=== PATIENT | female | born 1970 | race Caucasian/White ===

== ENCOUNTER 2016-11-06 13:58 | Inpatient (IN) ==
[2016-11-06 15:25] LABS: MANUAL DIFF NEEDED? NO
[2016-11-06 15:38] LABS: BASO% 0.4 % (0.0-0.8); EOS# 0.12 X1000 (0.0-0.7); EOS% 1.6 % (0.0-10.0); HEMOGLOBIN 12.9 g/dL (12.0-16.0); IMM GRAN# 0.02 X1000 (0.0-0.04); IMM GRAN% 0.3 % (0.0-0.5); LYMPH# 1.37 X1000 (1.2-3.4); LYMPH% 18.7 % (20.5-51.1); MCH 29.9 PG (27-31); MCHC 33.9 g/dL (33-37); MONO% 8.2 % (1.7-9.3); MPV 9.7 FL (7.4-10.4); NEUT% 70.8 % (42.2-75.2); PLT 279 X1000 (130-400); RBC 4.32 XMIL (4.2-5.4)
[2016-11-06 15:59] LABS: AGAP 13; ALBUMIN 4.1 g/dL (3.5-5.0); ALKALINE PHOSPHATASE 72 U/L (32-104); AMYLASE 44 U/L (20-200); BUN 6 mg/dL (8-22); CALCIUM 9.1 mg/dL (8.8-10.2); CHLORIDE 102 mmol/L (98-107); COSMO 279; GOT 28 U/L (10-30); GPT 39 U/L (10-36); LIPASE 24 U/L (13-60); POTASSIUM 3.7 mmol/L (3.5-5.1); SODIUM 141 mmol/L (136-145); TCO2 26 mmol/L (25-35); TOTAL BILIRUBIN 0.52 mg/dL (0.20-1.00); TOTAL PROTEIN 6.3 g/dL (6.3-8.3)
[2016-11-06] MEDS ORDERED: ZOFRAN IV ONE ×2 (17:47→22:08)
[2016-11-06] MEDS ORDERED: MORPHINE IM ONE (17:47)
--- NOTE | 2016-11-06 18:00 | PROVIDER DOCUMENTATION ---
This chart was entered by Iva Saldivar Scribe, acting as scribe for Marc Randall PA. HPI-Abdominal Pain/GI Problem - General Chief Complaint: Abdominal Pain Stated Complaint: ABD PAIN,NAUSEA Time Seen by Provider: 11/06/16 16:54 Source: patient, family (mother) Allergies/Adverse Reactions: Patient Allergies Allergy/AdvReac Type Severity Reaction Status Date / Time No Known Allergies Allergy Verified 11/06/16 21:42 Home Medications: Home Medication List Medication Instructions Recorded Confirmed Last Taken Type Escitalopram [Lexapro] 10 mg PO DAILY 11/06/16 11/06/16 11/06/16 History - History of Present Illness-ABD Nature of Presenting Problems: Pt is 46 y/o F presents to the ED with RLQ pain. Pt states pain started in LUQ and radiated to LLQ. Pt states pain has moved to the RLQ and is not longer in the L side of abdomen. Pt states the pain has been present for 19 days. Pt states the pain has worsened. Pt states N and V. Pt denies blood in stool. Pt states the pain is sharp. Pt states chronic abdominal pain since 14 years of age. Pt states seeing PCP last week and Dr. Allan diagnosed Pt with IBS. Abdominal Pain Onset Location: reports: RLQ Pain Radiation: reports: no radiation Quality of Pain: reports: sharp Severity in ED: reports: moderate Onset/Duration: reports: other (19 days) Timing: reports: still present, intermittent, getting worse Activities at Onset: reports: light activity Exposure to sick contacts?: No Modifying Factors: improves with: nothing Associated Symptoms: reports: nausea, vomiting. denies: anxiety, arm pain, back /neck pain, chest pain, constipation, cough, diaphoresis, diarrhea, dizziness, EENT symptoms, fatigue, fever/chills, genitourinary problems, headaches, heartburn, joint pain, loss of appetite, malaise, muscle aches, sinus congestion /drainage, rash, seizure, shortness of breath, sensory/motor loss, pain with inspiration, swelling/mass in abdomen, syncope, weakness, trouble walking Last BM: unsure Dark Stools Present?: reports: none noticed Rectal Bleeding: reports: none Rectal Pain: reports: none Emesis Description: reports: other (unsure) Bruising or Bleeding Gums?: No Similar Symptoms Previously?: Yes Recently seen or treated by another doctor?: Yes Review of Systems - Adult - REVIEW OF SYSTEMS - ADULT Constitutional: reports: no symptoms reported Eyes: reports: no symptoms reported Ears, Nose, Mouth & Throat: reports: no symptoms reported Cardiovascular: reports: irregular heart rate (tachy). denies: chest pain, heart murmur Respiratory: reports: no symptoms reported Gastrointestinal: reports: abdominal pain (RLQ), nausea, vomiting. denies: diarrhea Genitourinary: reports: no symptoms reported Musculoskeletal: reports: no symptoms reported Integumentary: reports: no symptoms reported Neurological: reports: no symptoms reported Psychiatric: reports: no symptoms reported Endocrine: reports: no symptoms reported Hematologic/Lymphatic: reports: no symptoms reported Allergic/Immunologic: reports: no symptoms reported All Other Systems: Reviewed and Negative Past History - Adult - PAST MEDICAL HISTORY-ADULT Review of Records: reports: Nursing Assessment Review, Medications Reviewed, Social history reviewed & non-contributory. Major Childhood Illnesses: reports: denies history Cardiovascular: reports: denies history Respiratory: reports: denies history Gastrointestinal: reports: denies history Obstetrical/Gynecological: reports: denies history Genitourinary: reports: denies history Musculoskeletal: reports: denies history Neurological: reports: denies history Psychiatric: reports: other (panic attack) Endocrine/Immune: reports: denies history Other Conditions: reports: denies history - PRIOR SURGERIES/PROCEDURES Surgical/Procedure History: reports: hysterectomy - IMMUNIZATION STATUS Childhood Immunizations: See Nurse Assessment Flu Vaccine: See Nurse Assessment - FAMILY HISTORY Family History: reviewed, not pertinent - SOCIAL HISTORY Smoking: denies Substance Use: denies Living Situation: family Physical Exam-General - PHYSICAL EXAM-ADULT Initial Vital Signs Reviewed: Yes - CONSTITUTIONAL General Appearance: alert, no apparent distress - EYES Eyes: PERRL/EOMI, pink conjunctivae - HEAD, EARS, NOSE, MOUTH & THROAT HENMT: normocephalic/atraumatic, moist mucous membranes, normal ENT inspection - NECK Neck: normal inspection - RESPIRATORY Respiratory: chest non-tender, lungs clear, normal breath sounds - CARDIOVASCULAR Cardiovascular: normal peripheral pulses, tachycardia - GASTROINTESTINAL (ABDOMEN) Abdominal Exam: normal bowel sounds, soft, tenderness (RLQ), McBurney's point tenderness, Rovsing's sign, other (positive heel tap) - LYMPHATIC Lymphatic: no adenopathy - MUSCULOSKELETAL Back Exam: normal inspection, no CVA tenderness, no vertebral tenderness Extremity: normal range of motion, non-tender, normal inspection - SKIN Integumentary: normal color, normal turgor, warm/dry - NEUROLOGIC Neurologic: grossly normal - PSYCHIATRIC Psych/Mental Status: normal mood/affect, oriented x 3 Progress - PLAN OF CARE/RESULTS Progress/Plan/Lab Results: Vital Signs - 8 hr 11/06/16 14:04 Temperature 99.0 F Pulse Rate 106 H Respiratory Rate 18 Blood Pressure 149/103 O2 Sat by Pulse Oximetry 100 Laboratory Results - last 24 hr 11/06/16 11/06/16 11/06/16 15:12 15:12 17:17 WBC 7.33 RBC 4.32 Hgb 12.9 Hct 38.0 MCV 88.0 MCH 29.9 MCHC 33.9 RDW Std Deviation 12.3 Plt Count 279 MPV 9.7 Immature Gran % (Auto) 0.3 Neut % (Auto) 70.8 Lymph % (Auto) 18.7 L [place] % (Auto) 8.2 Eos % (Auto) 1.6 Baso % (Auto) 0.4 Immature Gran # (Auto) 0.02 Neut # (Auto) 5.19 Lymph # (Auto) 1.37 [place] # (Auto) 0.60 H Eos # (Auto) 0.12 Baso # (Auto) 0.03 Sodium 141 Potassium 3.7 Chloride 102 Carbon Dioxide 26 Anion Gap 13 BUN 6 L Creatinine 0.6 Estimated GFR/1.73 m2 > 60 BUN/Creatinine Ratio 10 Glucose 94 Calculated Osmolality 279 Calcium 9.1 Total Bilirubin 0.52 AST 28 ALT 39 H Alkaline Phosphatase 72 Total Protein 6.3 Albumin 4.1 Globulin 2.2 Albumin/Globulin Ratio 1.9 Amylase 44 Lipase 24 Urine Source Cancelled Urine Color Cancelled Urine Turbidity Cancelled Urine pH Cancelled Ur Specific [place] Cancelled Urine Protein Cancelled Ur Glucose (Stick) Cancelled Ur Ketones (Stick) Cancelled Urine Blood Cancelled Urine Nitrite Cancelled Urine Bilirubin Cancelled Urobilinogen Dipstick Cancelled Urine Leukocytes Cancelled Urine WBC (Auto) Cancelled Urine RBC (Auto) Cancelled U Epithel Cells (Auto) Cancelled Urine Bacteria (Auto) Cancelled 11/06/16 17:28 WBC RBC Hgb Hct MCV MCH MCHC RDW Std Deviation Plt Count MPV Immature Gran % (Auto) Neut % (Auto) Lymph % (Auto) [place] % (Auto) Eos % (Auto) Baso % (Auto) Immature Gran # (Auto) Neut # (Auto) Lymph # (Auto) [place] # (Auto) Eos # (Auto) Baso # (Auto) Sodium Potassium Chloride Carbon Dioxide Anion Gap BUN Creatinine Estimated GFR/1.73 m2 BUN/Creatinine Ratio Glucose Calculated Osmolality Calcium Total Bilirubin AST ALT Alkaline Phosphatase Total Protein Albumin Globulin Albumin/Globulin Ratio Amylase Lipase Urine Source CLEAN CATCH Urine Color Urine Turbidity Urine pH Ur Specific [place] Urine Protein Ur Glucose (Stick) Ur Ketones (Stick) Urine Blood Urine Nitrite Urine Bilirubin Urobilinogen Dipstick Urine Leukocytes Urine WBC (Auto) Urine RBC (Auto) U Epithel Cells (Auto) Urine Bacteria (Auto) Orders Category Date Time Status AMYLASE [CHEM] Stat Lab 11/06/16 15:12 Completed CBC WITH ELECTRONIC DIFF [HEME] Stat Lab 11/06/16 15:12 Completed COMPREHENSIVE METABOLIC PANEL [CHEM] Stat Lab 11/06/16 15:12 Completed LIPASE [CHEM] Stat Lab 11/06/16 15:12 Completed Result Diagrams: 11/06/16 15:12 11/06/16 15:12 - REASSESSMENT Reassessment #1 Time Reassessed: 21:30 (Discussed c Dr. De La Torre (ER MD) who reviewed imaging studies and labs. He agrees c plan of care to admit pt for GI and General Surgery to evaluate. ) - CT/MRI 1 CT Study: Abdomen, Pelvis Impression: Abnormal (Distended R colon; transition to normal caliber at distal transverse colon, where there is wall thickening; considerations include colitis and mass lesion at the distal transverse colon; free fluid in pelvis; unremarkable appendix) - CONSULTS/PCP/HOSPITALIST Notification #1 *Consult/PCP/Hospitalist*: Dr. Cochran (General Surgery) Time Discussed: 21:22 Reason/Comments: Recommend admission and be seen by GI. Will see her in am tomorrow. #2 Consult: Dr. Gao (GI) Time Discussed: 21:40 (Admit pt to Hospitalist service. She will consult and order bowel prep c plan to scope on Wednesday. Start Levaquin and Flagyl ) Reason/Comments: Pt is established c Dr. Gao and specifically requested she be consulted. #3 Consult: Dr. Haas (Hospitalist) Time Discussed: 22:12 Reason/Comments: Will admit pt and see in ER and write all orders. Do not start Levaquin. Departure - Departure Time of Disposition Decision: 22:07 DIAGNOSIS: Colitis, Colonic mass Disposition: ADMITTED INPATIENT 09 Certified Medical Emergency: Emergent Condition: Stable Referrals and Follow-Ups: Shady Allan MD [Primary Care Provider] - - Critical Care Note This patient required my direct personal management.: Yes Attestation - Physician/ NEHEMIAH Attestation Patient care was provided by Advanced Practice Provider:: Yes Advanced Practice Provider:: Marc Randall Advanced Practice Provider documentation review:: The Mid-level provider documentation, treatment plan and medical decision making was reviewed by the physician who agrees with all treatment and medical decision making by the MLP. This chart was documented by the indicated scribe, (Iva Saldivar Scribe) and accurately reflects the services I performed and decisions made by me, Marc Randall PA, as attested by the provider's signature.
[2016-11-06] MEDS ORDERED: MORPHINE IV ONE (22:08)
[2016-11-06] MEDS ORDERED: FLAGYL 750 MG in NS 150 ML IV ONE (22:08)
--- NOTE | 2016-11-06 23:04 | HISTORY AND PHYSICAL ---
PRIMARY CARE PHYSICIAN: Dr. Shady Allan. CHIEF COMPLAINT: Abdominal pain. HISTORY OF PRESENTING ILLNESS: A 46-year-old female with a history of panic attacks had presented to emergency department with 2 weeks history of having diffuse abdominal pain. She states that initially started on the left lower quadrant then migrated throughout her whole abdomen. She had seen a primary care physician who put her on some Bentyl possibly for irritable bowel syndrome. However she states that she began having more nausea and vomiting and abdominal pain was worsening. She was evaluated in the ER, she had a CAT scan done which was suspicious for colon lesion and colitis and subsequently she will need hospitalization for further management. At the time my examination she denied any headache, fever, chills, chest pain, shortness of breath, hemoptysis but complained of nausea, vomiting, abdominal discomfort. PAST MEDICAL HISTORY: Includes panic attacks. PAST SURGICAL HISTORY: Hysterectomy. ALLERGIES: No known drug allergies. CURRENT MEDICATIONS: Include Lexapro 10 mg p.o. daily. SOCIAL HISTORY: She denies any history of smoking, admits to social alcohol use. Denies any illicit drug use. She is a teacher. FAMILY HISTORY: Positive for coronary disease father. REVIEW OF SYSTEMS: Twelve point review of systems is as in HPI. Other systems negative. PHYSICAL EXAMINATION: GENERAL: Cooperative, friendly female, she is resting comfortably now. VITAL SIGNS: Temperature 99.0, pulse 106, respiration 18, blood pressure 149/103. HEENT: Atraumatic, normocephalic. Extraocular movements intact. PERRLA. NECK: Supple. CHEST: Clear to auscultation. CARDIOVASCULAR: Regular rate and rhythm. S1, S2. ABDOMEN: Soft. Diffuse tenderness. EXTREMITIES: No edema. NEURO: She is awake, alert, oriented x3. Speech is intact. Strength 5/5 all extremities. : No bladder distention. SKIN: Warm and good pallor. LABORATORIES AND STUDIES: WBCs 7.33, hemoglobin 12.9, hematocrit 38.0, platelets 279,000. Sodium 141, potassium 3.7, chloride 102, CO2 is 26, BUN is 6, creatinine 0.6, glucose is 94. ASSESSMENT: 46-year-old female with a history of panic attack and anxiety disorder had presented to emergency department with 2 weeks history of having abdominal pain. She was found to have on CT scanning possible colon lesion and colitis. She will need hospitalization further management. ASSESSMENT: 1. Abdominal pain. 2. Abnormal CT. 3. Acute colitis. 4. Suspected colon mass. 5. Panic attacks. PLAN: 1. Will admit patient to medical floor with telemetry. 2. Will keep patient on full liquid diet over weekend. 3. Continue with IV fluids, antiemetics and adequate pain control. 4. Will consult Gastroenterology. 5. Will restart her SSRI. 6. Will put patient on DVT prophylaxis SCD. 7. We will continue to follow and reassess. cc: Jas Haas MD
[2016-11-06] MEDS ORDERED: NS 1,000 ML IV SCH (23:29)
[2016-11-06] MEDS: LEXAPRO PO SCH (23:56)
[2016-11-06] MEDS: FLAGYL 500 MG/NS 500 MG/100 ML IVPB IV SCH (23:59)
--- NOTE | 2016-11-07 01:11 | Diag Imaging Result Document ---
PROCEDURE NAME: CT ABD/PELVIS W/ IV CONT ONLY - 11/06/2016 CT ABDOMEN AND PELVIS WITH IV CONTRAST ONLY: TECHNIQUE: Exam performed with intravenous contrast only per request of the referring provider. A dose reduction protocol was used. COMPARISON: No comparison exam. FINDINGS: The visualized lung bases are clear. There is a nonspecific 1 cm low-density lesion in the posterior right lobe of the liver. There is no other liver lesion identified. The spleen appears upper range of normal in size. There are no calcified gallstones or pericholecystic inflammation identified. The adrenal glands and pancreas are unremarkable. The bilateral kidneys enhance homogeneously. There is no hydronephrosis. There are no substantially enlarged lymph nodes identified. There is no evidence of small bowel obstruction. The right colon is distended with fluid and air. There is a transition to normal caliber colon at the distal transverse colon. There is wall thickening in the area of caliber change at the distal transverse colon. These findings may relate to colitis. The possibility of partially obstructing mass lesion at the distal transverse colon cannot be excluded, however. There is no abscess identified. There is no free air. There is a medium amount of free fluid in the pelvis. The appendix is unremarkable. Images of the pelvis otherwise show a 1.7 cm thick-walled right ovarian cyst. IMPRESSION: 1. Nonspecific 1 cm low density lesion in posterior right lobe of liver. 2. Distended right colon with fluid and air. Transition to normal caliber colon at the distal transverse colon, where there is wall thickening. Considerations include colitis and partially obstructing mass lesion at the distal transverse colon. 3. No small bowel obstruction. Unremarkable appendix. 4. No abscess. No free air. Medium amount of free fluid in pelvis. 5. A 1.7 cm thick-walled right ovarian cyst.
[2016-11-07 06:08] LABS: MANUAL DIFF NEEDED? NO
[2016-11-07 06:13] LABS: BASO% 0.3 % (0.0-0.8); EOS# 0.11 X1000 (0.0-0.7); EOS% 1.7 % (0.0-10.0); HEMATOCRIT 34.9 % (37.0-47.0); HEMOGLOBIN 11.9 g/dL (12.0-16.0); IMM GRAN# 0.02 X1000 (0.0-0.04); IMM GRAN% 0.3 % (0.0-0.5); LYMPH# 1.28 X1000 (1.2-3.4); LYMPH% 19.6 % (20.5-51.1); MCH 29.9 PG (27-31); MCHC 34.1 g/dL (33-37); MCV 87.7 FL (81-99); MONO# 0.67 X1000 (0.11-0.59); MONO% 10.2 % (1.7-9.3); MPV 9.7 FL (7.4-10.4); NEUT% 67.9 % (42.2-75.2); PLT 238 X1000 (130-400); RBC 3.98 XMIL (4.2-5.4)
[2016-11-07] MEDS: ZOFRAN IV PRN ×4 (06:16→22:01)
[2016-11-07 06:51] LABS: AGAP 12; BUN 5 mg/dL (8-22); CALCIUM 8.4 mg/dL (8.8-10.2); CHLORIDE 104 mmol/L (98-107); COSMO 278; POTASSIUM 3.5 mmol/L (3.5-5.1); SODIUM 141 mmol/L (136-145); TCO2 25 mmol/L (25-35)
[2016-11-07] MEDS: FLAGYL 500 MG/NS 500 MG/100 ML IVPB IV SCH ×3 (08:09→22:01)
[2016-11-07 08:49] LABS: URINE CULTURE NEEDED? NO; URINE MICRO REVIEW NEEDED? NO; URINE SOURCE CLEAN CATCH
[2016-11-07 08:53] LABS: BILIRUBIN URINE NEGATIVE (NEGATIVE); BLOOD URINE NEGATIVE (NEGATIVE); COLOR YELLOW; GLUCOSE URINE NEGATIVE (NEGATIVE); LEUKOCYTES URINE NEGATIVE (NEGATIVE); NITRITE URINE NEGATIVE (NEGATIVE); PH URINE 6.5; PROTEIN URINE NEGATIVE (NEGATIVE); SP GRAVITY URINE 1.017; TURBIDITY URINE CLEAR (CLEAR); UROBILINOGEN URINE NORMAL (NORMAL)
[2016-11-07 08:54] LABS: UR EPITHELIAL CELLS <10 /HPF (<10); URINE BACTERIA NEGATIVE /HPF; URINE RBC <10 /HPF (<10); URINE WBC <10 /HPF (<10)
[2016-11-07] MEDS: OXY IR PO PRN (11:15)
[2016-11-07] MEDS ORDERED: SODIUM CHLORIDE 0.9% INJ PRN (11:57)
[2016-11-07] MEDS ORDERED: GOLYTELY PO ONE (11:58)
--- NOTE | 2016-11-07 12:39 | PROGRESS NOTE ---
DATE: 11/07/2016 SUBJECTIVE: Ms. Casarez was admitted per Dr. Haas, a 46-year-old with history of panic attacks and general anxiety, who presented to the emergency room. She really for the last week has had more abdominal bloating and nausea, right-sided and sometimes diffuse abdominal pain. Initially it started in the left lower quadrant and then migrated to the whole abdomen. I saw her last week and put her on a little bit of Bentyl to see if this would help. She does have a history of irritable bowel syndrome in the past status post hysterectomy. She states she is still nauseated, of course she is very worried. She had a CT of her abdomen and pelvis and nonspecific 1 cm low- density lesion in the posterior right lobe of the liver, distended right colon with fluid air, transition to normal caliber colon at the distal transverse colon where there was wall thickening. Considerations included colitis, partially obstructing mass in the distal transverse colon. No small bowel obstruction. No abscess. There is 1.7 cm thick wall right ovarian cyst. OBJECTIVE: Vital Signs: On exam today, temp 98.5 degrees, pulse 75, respirations 16, blood pressure 119/66. HEENT: Pupils are equal, round, react to light and accommodation. Oral and nasal mucosa unremarkable. Conjunctivae pink. Sclerae clear. Tympanic membranes intact. Neck: Supple without adenopathy or thyromegaly. CVP less than 6 cm. : Urine output was almost 2 L. CBC: White count 6540, hematocrit 34, platelet count 238,000. Sodium 141, potassium 3.5 chloride 104, BUN 5 and creatinine 0.6. ASSESSMENT AND PLAN: History of panic attacks and anxiety disorder. Presented to the emergency room having some abdominal pain. CT scan showed possible colon lesion, colitis. Plan to prep her and hopefully get colonoscopy on Wednesday per Dr. Gao. She is very anxious and of course obviously concerned. We will try and prep her and do this slowly. She has some Zofran for nausea. I started some oxycodone IR as needed for pain. Let her have Phenergan if she needs it. Fluids going in at 150 mL per hour; I am going to change it to 85 mL an hour. I have her on Flagyl 500 mg IV q. 8 hours. She takes her Lexapro 10 mg daily. cc: Shady Allan MD
[2016-11-07] MEDS: PHENERGAN IV PRN ×3 (13:59→22:57)
--- NOTE | 2016-11-07 17:16 | CONSULTATION ---
DATE OF CONSULTATION: 11/07/2016 REASON FOR CONSULTATION: Abdominal pain. Possible colonic mass. HISTORY OF PRESENT ILLNESS: This is a 46-year-old female with a long history of irritable bowel syndrome symptoms who recently over the last 2 weeks has had a more persistent and intense, crampy, spasmodic type pain starting in her left upper abdomen and radiating across to her right side. It is been happening daily multiple times throughout the day without any known triggering factors or relieving factors. It has also been associated with some nausea and vomiting. She has been having daily stools but the amount and frequency is slowing down to once a day and normally she is 2-3 times per day. She has not seen any blood in her stool or vomit. She denies any weight loss. She denies any fever. She had a little bit of some chills a few days ago. PAST MEDICAL HISTORY: Irritable bowel syndrome, panic attacks. PAST SURGICAL HISTORY: Partial hysterectomy. HOME MEDICATIONS: Lexapro and recently a prescription for Bentyl and Prilosec. ALLERGIES: No known drug allergies. SOCIAL HISTORY: She denies tobacco or illicit drug use. She drinks alcohol occasionally socially. She is a teacher at a local elementary school. FAMILY HISTORY: Notable for diverticulitis in her mother and coronary artery disease in her father. REVIEW OF SYSTEMS: Ten systems reviewed and negative except as noted above. PHYSICAL EXAMINATION: Vital Signs: Temperature 98.4 degrees, pulse 74, respirations 16, blood pressure 119/65, O2 saturation 99%. General: Well-developed, well-nourished female, in no distress who looks her stated age. HEENT: Normocephalic, atraumatic. Extraocular muscles intact. Pupils equal, round, reactive to light. Sclerae anicteric. Moist mucous membranes. Hearing grossly normal. No oral lesions. Neck: Supple. No thyromegaly. CV: Regular rate and rhythm. Respiratory: Bilateral equal breath sounds. Gastrointestinal: Soft, nondistended. She does have bowel sounds. No organomegaly or mass. She is tender in the right upper and lower quadrants and some in her epigastrium. No rebound or guarding. No mass or hernia appreciated. Extremities: No clubbing, cyanosis, or edema. Skin: Warm and dry. No rash. Musculoskeletal: Moves all extremities equally and well. LABORATORY: White blood cell count 6.5, hemoglobin 11.9, hematocrit 34.9. Complete metabolic profile reviewed and unremarkable. Amylase and lipase normal. Urinalysis unremarkable. IMAGING: A CT of abdomen and pelvis was done yesterday and reviewed by me showing a nonspecific 1 cm low-density lesion in the posterior right lobe of the liver. There appears to be a distended right colon with transition point along the distal transverse colon with associated wall thickening here. This could possibly represent colitis versus a partially obstructing colon cancer. She has a thick-walled right ovarian cyst. ASSESSMENT AND PLAN: A 46-year-old female with partial large bowel obstruction. The etiology is unclear at this point. She is going to proceed with slow gentle bowel prep in anticipation of a diagnostic colonoscopy on Wednesday by Dr. Gao. I will follow along with you. Thanks for the consultation. cc: MD Shady Call MD
[2016-11-07] MEDS: LEXAPRO PO SCH (22:01)
[2016-11-08] MEDS: FLAGYL 500 MG/NS 500 MG/100 ML IVPB IV SCH ×3 (01:43→17:14)
[2016-11-08] MEDS: PHENERGAN IV PRN (03:44)
[2016-11-08] MEDS ORDERED: DULCOLAX PR ONE (06:00)
[2016-11-08] MEDS: OXY IR PO PRN (06:16)
[2016-11-08] MEDS: ZOFRAN IV PRN ×3 (06:16→19:56)
[2016-11-08] MEDS ORDERED: FLEET ENEMA PR ONE (09:26)
[2016-11-08] MEDS ORDERED: REGLAN IV PRN (10:11)
--- NOTE | 2016-11-08 10:20 | PROGRESS NOTE ---
DATE: 11/08/2016 SUBJECTIVE: The patient is feeling nauseated and still having some abdominal pain, mostly on the right side. She has not been able to take much of her GoLYTELY prep. She has had just a little flatus and small stool this morning. OBJECTIVE: Vital Signs: She is afebrile. Her pulse is now a little over 100 at 1:13 this morning. Blood pressure 146/95. General: She is ill appearing and uncomfortable but no acute distress. GI: Soft, nondistended. She is tender on the right side. ASSESSMENT/PLAN: A 46-year-old female with large bowel obstruction of unclear etiology. She is trying to take a bowel prep today. I will give her a Fleets enema and she is scheduled for a colonoscopy tomorrow. cc: MD Shady Call MD
[2016-11-08] MEDS: DILAUDID IV PRN ×3 (10:38→19:56)
--- NOTE | 2016-11-08 11:22 | PROGRESS NOTE ---
DATE: 11/08/2016 SUBJECTIVE: Ms. Casarez's nausea is worse. She is just very uncomfortable. Abdominal bloating. Her right hip is hurting from lying in the bed. PHYSICAL EXAMINATION: Vital Signs: Today, temperature 97.9 degrees, pulse 113, respirations 14, blood pressure 146/95. HEENT: Pupils are equal and round. Lungs: Clear in all lung naylor. Cardiovascular Examination: Regular rhythm and rate without murmur or S3. Abdomen: Soft. Skin: Warm and dry. Is and Os: Urine output was 600-700 mL. REVIEW OF LABS: No new labs this morning. She has taken very little to prep of her Colyte. ASSESSMENT AND PLAN: 1. Partial large bowel obstruction, etiology unclear. Colonoscopy planned for tomorrow, I believe with Dr. Gao. Going to proceed with gentle bowel prep. She is very nauseated. I will add Reglan to her regimen. 2. Complained of right hip pain, lying in the bed. I am going to let her have something stronger intravenous. I will let her have 0.5 mg of Dilaudid every 4 hours as needed. 3. Hemodynamics look stable. Present fluids, I think I will give her normal saline and run it at 80 mL an hour or 85 mL an hour. She is still on the Flagyl 500 mg intravenous every 8. cc: Shady Allan MD
[2016-11-08] MEDS: LEXAPRO PO SCH (20:10)
[2016-11-09] MEDS: FLAGYL 500 MG/NS 500 MG/100 ML IVPB IV SCH ×4 (01:00→20:08)
--- NOTE | 2016-11-09 09:39 | CONSULTATION ---
DATE OF CONSULTATION: 11/09/2016 REFERRING PHYSICIAN: Dr. Shady Allan M.D. INDICATION FOR CONSULTATION: 1. Abdominal pain. 2. Nausea with vomiting. 3. Abnormal CT scan. HISTORY OF PRESENT ILLNESS: The patient is a 46-year-old, white female who has a past medical history of panic attacks. Otherwise, she has been relatively healthy. She notes intermittent diarrhea and constipation when stressed. However, approximately 3 weeks ago, she began having diffuse abdominal pain. She thought that the pain might be related to a viral syndrome and so managed it conservatively at home for several days. However, the pain persisted and became more intense. It was associated with constipation which is atypical for her, as well as nausea with vomiting. She presented to Dr. Allan, her primary care physician, who thought her symptoms were consistent with irritable bowel syndrome. She was initially placed on Bentyl but reports no improvement. The pain persisted and she presented to the emergency room for evaluation. In the ER, a CT scan is remarkable for a lesion in the transverse colon with possible mass effect. There is also a 1 cm density in the posterior right lobe of the liver. There was no evidence of small bowel obstruction, abscess, or free air. There was a medium amount of free fluid in the pelvis. Because of her symptoms, we are asked to perform endoscopic evaluation. PAST MEDICAL HISTORY: Panic attacks. PAST SURGICAL HISTORY: Hysterectomy. MEDICATION ALLERGIES: None. CURRENT MEDICATIONS: Lexapro 10 mg per day. SOCIAL HISTORY: The patient reports occasional alcohol use. She denies tobacco or illicit drug use. She is a teacher. FAMILY HISTORY: Positive for coronary artery disease. There is no history of colon cancer. REVIEW OF SYSTEMS: Remarkable for abdominal bloating and distention with left upper quadrant and left lower quadrant discomfort. She notes fullness in the right lower quadrant. She has had nausea and vomiting this admission, has been poorly tolerant of oral intake. PHYSICAL EXAMINATION: General: On exam, she is in no acute distress. Vital Signs: Her blood pressure is 129/82, pulse 111, respirations 16, temperature of 98.8 degrees. HEENT: Negative for jaundice. Her oropharyngeal mucosal membranes are dry. Pulmonary Examination: Lungs are clear to auscultation with normal respiratory effort. Cardiovascular Examination: Reveals regular rate and rhythm with no murmurs, gallops, or rubs. On my examination, her heart rate was 96. Abdominal Examination: Reveals normoactive bowel sounds. The abdomen is soft but significantly distended. The abdominal wall feels somewhat doughy and she has palpable fullness in the right lower quadrant as well as significant tenderness in the epigastrium/left upper quadrant. Extremities: Bilaterally are negative for cyanosis, clubbing, or edema. OBJECTIVE DATA: Reveals a hemoglobin of 11.9, with hematocrit of 34.9, and a white count of 6.54. She has 238,000 platelets. Sodium is 141, potassium 3.5, chloride 104, CO2 of 25, BUN 5, creatinine 0.6, with a glucose of 90, and a calcium of 8.4. IMPRESSION: 1. Nausea with vomiting. 2. Epigastric/left upper quadrant pain. 3. Abnormal CT scan with possible mass versus colitis in the left lower quadrant. 4. Normocytic anemia. RECOMMENDATION: 1. The patient will undergo an EGD and flexible sigmoidoscopy/colonoscopy today for further evaluation. 2. Continue to monitor hemoglobin and hematocrit, and transfuse as indicated. 3. Additional recommendations to follow based on clinical course. cc: Emeli Burk M.D. IRVIN
[2016-11-09] MEDS: ZOFRAN IV PRN ×3 (10:45→22:54)
[2016-11-09] MEDS ORDERED: MYLICON DROPS (DOSE) ONE (11:55)
[2016-11-09] MEDS ORDERED: DIPRIVAN 1% ONE (13:03)
[2016-11-09] MEDS ORDERED: EXTENSION SET 32 IN 4522 ONE (13:18)
[2016-11-09] MEDS ORDERED: ZOFRAN ONE (13:18)
[2016-11-09] MEDS ORDERED: XYLOCAINE-MPF 2% ONE (13:18)
[2016-11-09] MEDS ORDERED: ANESTHESIA PB SET 88 IN 5742 ONE (13:18)
[2016-11-09] MEDS ORDERED: LR 1,000 ML ONE (13:18)
[2016-11-09] MEDS ORDERED: LEVAQUIN 750 MG/D5W 750 MG/150 ML IVPB IV SCH (13:19)
[2016-11-09] MEDS: PROTONIX IV SCH (13:52)
[2016-11-09] MEDS: SOLU-MEDROL IV SCH (13:52)
[2016-11-09] MEDS: CARAFATE LIQUID PO SCH ×2 (13:52→20:08)
[2016-11-09] MEDS: SODIUM CHLORIDE 0.9% INJ SCH (13:52)
--- NOTE | 2016-11-09 14:02 | CONSULTATION ---
DATE OF CONSULTATION: 11/08/2016 CHIEF COMPLAINT: Abdominal pain. HISTORY OF PRESENT ILLNESS: This is a 46-year-old lady with a history of intermittent abdominal pain for the last 3-4 weeks. She has recently moved from [facility] and her had a piece of chicken stuck in the esophagus. Dr. Gao took care of it. She called her office and she is waiting for an appointment but more recently is having more abdominal distention, increasing constipation and some mucus in the stool. She had a CT scan which showed distention of the right colon and a narrowing at the distal transverse colon with suspicion whether colitis or mass. PAST MEDICAL HISTORY: Panic attacks. PAST SURGICAL HISTORY: Hysterectomy. ALLERGIES: None. CURRENT MEDICATIONS: Lexapro 10 mg daily. SOCIAL HISTORY: She does not smoke, drinks occasionally. No drug use. She is a teacher. FAMILY HISTORY: Positive for coronary artery disease. REVIEW OF SYSTEMS: A 12-point review is negative other than HPI. PHYSICAL EXAMINATION: General: This is a pleasant lady in no acute distress. Vital Signs: Temperature 98 degrees, pulse 90, respirations 18, blood pressure 140/90. HEENT: No scleral icterus. No conjunctival pallor. Neck: Supple. Trachea midline. Heart: Normal. Lungs: Normal. Abdomen: Distended, mild tenderness diffusely but no rebound or rigidity. Bowel sounds are present. Extremities: No edema, cyanosis, clubbing. Neuro: No focal neurological deficit. LABORATORY DATE: WBC 7.33, hemoglobin 12.9, hematocrit 38, platelets 279,000. Sodium 147, potassium 3.7, chloride 102, CO2 26, BUN 6, creatinine 0.6, glucose of 94. IMPRESSION AND PLAN: 1. Increasing abdominal pain, distention, change in the bowel pattern. The CAT scan does show some narrowing in the distal transverse colon. The differential diagnosis includes a neoplasm as well as stricture secondary to some colitis as a possibility. 2. Mild anemia. 3. History of panic attacks. 4. Increasing abdominal pain and change in the bowel pattern which may be related to #1. Will continue her prep. She is still nauseated. Dr. Gao is actually aware and is worried but I have asked her to get up and walk around while drinking light. It would be better if we have a clean colon for proper diagnosis. However we should not push this to possible obstruction. The patient understands while she is there and I have explained this. Dr. Gao will be doing colonoscopy which would lead to the diagnosis. cc: MD Shady Urbina MD
[2016-11-09] MEDS: DILAUDID IV PRN ×3 (14:13→22:54)
--- NOTE | 2016-11-09 14:43 | Diag Imaging Result Document ---
PROCEDURE NAME: CHEST/ABD TUBE PLACEMENT - 11/09/2016 PORTABLE EXAM: REASON FOR STUDY: Nasogastric tube placement. FINDINGS: The tip of the nasogastric tube is at the expected location of the mid stomach. The side port of the nasogastric tube is at the expected location of the gastroesophageal junction. The nasogastric tube probably should be advanced a few centimeters for more optimal positioning. Verbal results provided to nurse Crawley at 1:55 p.m. on 11/09/2016.
[2016-11-09 15:18] LABS: BASO% 0.4 % (0.0-0.8); EOS# 0.19 X1000 (0.0-0.7); EOS% 1.9 % (0.0-10.0); HEMATOCRIT 38.9 % (37.0-47.0); HEMOGLOBIN 13.3 g/dL (12.0-16.0); IMM GRAN# 0.03 X1000 (0.0-0.04); IMM GRAN% 0.3 % (0.0-0.5); LYMPH# 1.74 X1000 (1.2-3.4); LYMPH% 17.3 % (20.5-51.1); MANUAL DIFF NEEDED? NO; MCH 30.4 PG (27-31); MCHC 34.2 g/dL (33-37); MONO# 1.17 X1000 (0.11-0.59); MONO% 11.6 % (1.7-9.3); MPV 9.9 FL (7.4-10.4); NEUT% 68.5 % (42.2-75.2); PLT 316 X1000 (130-400); RBC 4.37 XMIL (4.2-5.4)
--- NOTE | 2016-11-09 17:12 | PROGRESS NOTE ---
DATE: 11/09/2016 SUBJECTIVE: Ms. Casarez feels better. She does have an NG tube in place for low wall suction. Dr. Gao had performed an EGD and was a limited colonoscopy because of inadequate prep I believe. Patient is more comfortable. OBJECTIVE: Vital signs: Temperature 98.5 degrees, pulse 101, respirations 16, blood pressure 115/67. HEENT: The pupils are equal and round. CVP less than 6 cm. Lungs: Clear in all lung naylor. Cardiovascular: Regular rhythm and rate without murmurs. : Good urine output at 1200 mL. LABORATORY FROM THIS MORNING: white count 10,080, hematocrit 38, platelet count 316,000. Sodium 141, potassium 3.5, chloride 104, bicarb 25, BUN 5, creatinine 0.6. Liver functions, mild elevation of ALT. ASSESSMENT AND PLAN: Nausea, vomiting, epigastric, upper quadrant pain, left upper quadrant pain. Abnormal CT with possible mass versus colitis in the left lower quadrant. Normocytic anemia. EGD performed. Apparently there was ulcer seen. We will discuss with Dr. Gao. I guess there is potential that this could be a regional enteritis or Crohn's disease. She is more comfortable. Nasogastric tube is helping. Continue intravenous fluids. cc: Shady Allan MD
[2016-11-09] MEDS: LEXAPRO PO SCH (20:08)
[2016-11-10] MEDS: SOLU-MEDROL IV SCH ×2 (01:40→13:04)
[2016-11-10] MEDS: SODIUM CHLORIDE 0.9% INJ SCH ×2 (01:40→13:03)
[2016-11-10] MEDS: PROTONIX IV SCH ×2 (01:40→13:04)
[2016-11-10] MEDS: CARAFATE LIQUID PO SCH ×4 (01:40→21:00)
[2016-11-10] MEDS: FLAGYL 500 MG/NS 500 MG/100 ML IVPB IV SCH ×3 (04:04→21:00)
[2016-11-10] MEDS: ZOFRAN IV PRN ×2 (04:11→10:08)
[2016-11-10] MEDS: DILAUDID IV PRN ×2 (04:11→10:17)
--- NOTE | 2016-11-10 09:36 | PROGRESS NOTE ---
DATE: 11/10/2016 SUBJECTIVE: She had a rough night at the beginning. She feels like the Levaquin is making her very nauseated. She requested that I stop the Levaquin. Otherwise, was showing some improvement. NG tube still in place. Abdomen does not appear distended. PHYSICAL EXAMINATION: Vital Signs: Temperature 98.9 degrees, pulse 97, respirations 16, blood pressure 132/81. HEENT: Pupils are equal and round. CVP less than 6 cm. Lungs: Clear in all lung naylor. Cardiovascular Examination: Regular rhythm and rate without murmur or S3. Is and Os: The urine output was good. LAB: White count 10,080, hematocrit 38, platelet count 316,000. Reviewed labs from the , unremarkable. ASSESSMENT AND PLAN: 1. She had nausea, vomiting, epigastric and left upper quadrant pain. CT showed a mass versus colitis, left lower quadrant. Colonoscopy, unable to prep adequate. The esophagogastroduodenoscopy was performed. There was suspicion based on the esophagogastroduodenoscopy and ulcer seen that she could have Crohn's disease or segmental enteritis. She is on steroid. Apparently, she feels that the Levaquin is making her very sick so she requested that I stop the Levaquin, which I will do. She is still on Flagyl 500 mg intravenous every 8. We will discontinue the Levaquin. Continue the methylprednisone which is 40 mg intravenous every 12 hours, Carafate 1 g every 6 hours. She is on Protonix 40 mg intravenous every 12 hours. 2. General anxiety, history of panic attacks in the past. She is on Lexapro. cc: Shady Allan MD
--- NOTE | 2016-11-10 10:09 | Diag Imaging Result Document ---
PROCEDURE NAME: TAMMY ABDOMEN - 11/10/2016 ABDOMEN TWO VIEWS: COMPARISON: 11/09/2016. FINDINGS: A nasogastric tube overlies the stomach. There continues to be air distended loops of small bowel and proximal colon. No improvement compared to prior exam. IMPRESSION: Ileus versus distal colonic obstruction.
--- NOTE | 2016-11-10 13:29 | PROGRESS NOTE ---
DATE: 11/10/2016 SUBJECTIVE: The patient states that she is feeling much better today. She reports that since we placed the nasogastric tube, her abdominal distention has improved. She continues to have constipation and abdominal pain, but it is significantly better than on admission. She underwent a colonoscopy that was limited to 40 cm due to severe acute colitis that appeared suggestive of Crohn's versus ulcerative colitis. We were unable to reach the mass that was visualized on CT scan. Her nausea has improved overall; however, she had significant nausea after receiving an infusion of Levaquin. OBJECTIVE: Vital Signs: On examination, her blood pressure is 132/81, pulse 97, respirations 16, temperature of 98.9 degrees. HEENT: Remarkable for a nasogastric tube in the right naris. Her oropharyngeal mucosal membranes are slightly dry. Pulmonary: Her lungs are clear to auscultation, with normal respiratory effort. Cardiovascular: Reveals regular rate and rhythm, with no gallops or rubs. Abdominal: Reveals hypoactive bowel sounds. The abdomen is soft with mild diffuse abdominal tenderness, but no rebound or guarding. It should be noted that the abdominal distention is less than on previous examination. OBJECTIVE DATA: Remarkable for a CRP of 15.38. RECOMMENDATIONS: 1. Continue current management with nasogastric tube decompression. 2. Check a KUB today and in the morning. 3. Continue Protonix 40 mg IV q.12 hours, along with Carafate 1 g p.o. q.6 hours. 4. Continue Flagyl. 5. Add Zosyn to expand the coverage. 6. Continue Solu-Medrol. 7. Await pathology results from her biopsies. 8. Await inflammatory bowel disease panel. 9. She will need another endoscopy prior to discharge to reassess the intraluminal lesion. cc: MD Shady uBrk MD
--- NOTE | 2016-11-10 13:33 | PROGRESS NOTE ---
DATE: 11/10/2016 SUBJECTIVE: The patient says she feels a little better after some NG tube suctioning. Her belly feels less tight and tender; however, she has not passed any gas or had bowel movements overnight. OBJECTIVE: Vital Signs: She is afebrile. Vital signs are stable. Pulse is up into the upper 90s now. General: She is alert and oriented x4. No acute distress. Abdomen: Soft, not particularly distended. There is mild tenderness. This is improved from her previous examination. LABORATORY: The only laboratory today is C-reactive protein of 15.4. IMAGING: Abdominal x-ray continues to show gas-distended loops of small bowel in probably proximal colon, indicating ongoing obstruction. ASSESSMENT/PLAN: A 46-year-old female with large-bowel obstruction and colitis. There is some concern for inflammatory bowel disease or Crohn's. Dr. Gao has started her on steroids. She is on Zosyn. We are going to hopefully treat her conservatively for the next few days and hopefully achieve some decrease in the inflammatory edema of her colon. We are tentatively planning a repeat colonoscopy on Wednesday. I will continue to follow along. cc: MD Shady Call MD
[2016-11-10 13:37] LABS: MANUAL DIFF NEEDED? NO
[2016-11-10 13:42] LABS: BASO% 0.1 % (0.0-0.8); HEMATOCRIT 39.5 % (37.0-47.0); HEMOGLOBIN 13.5 g/dL (12.0-16.0); IMM GRAN# 0.02 X1000 (0.0-0.04); IMM GRAN% 0.2 % (0.0-0.5); LYMPH# 1.45 X1000 (1.2-3.4); LYMPH% 12.1 % (20.5-51.1); MCH 30.3 PG (27-31); MCHC 34.2 g/dL (33-37); MCV 88.6 FL (81-99); MONO# 1.26 X1000 (0.11-0.59); MONO% 10.5 % (1.7-9.3); MPV 9.6 FL (7.4-10.4); NEUT% 77.1 % (42.2-75.2); PLT 355 X1000 (130-400); RBC 4.46 XMIL (4.2-5.4)
[2016-11-10] MEDS ORDERED: CHLORASEPTIC SPRAY MT PRN (15:15)
[2016-11-10] MEDS: ZOSYN 3.375 GM/NS 3.375 GM/50 ML IVPB IV SCH (18:16)
[2016-11-10] MEDS: LEXAPRO PO SCH (21:19)
[2016-11-11] MEDS: SOLU-MEDROL IV SCH ×2 (00:29→12:45)
[2016-11-11] MEDS: PROTONIX IV SCH ×2 (00:29→12:45)
[2016-11-11] MEDS: SODIUM CHLORIDE 0.9% INJ SCH ×2 (00:29→12:45)
[2016-11-11] MEDS: CARAFATE LIQUID PO SCH ×4 (02:00→20:06)
[2016-11-11] MEDS: ZOSYN 3.375 GM/NS 3.375 GM/50 ML IVPB IV SCH ×4 (04:04→18:21)
[2016-11-11] MEDS: FLAGYL 500 MG/NS 500 MG/100 ML IVPB IV SCH ×3 (04:48→20:05)
[2016-11-11 07:11] LABS: BASO% 0.1 % (0.0-0.8); HEMATOCRIT 39.2 % (37.0-47.0); HEMOGLOBIN 13.3 g/dL (12.0-16.0); IMM GRAN# 0.06 X1000 (0.0-0.04); IMM GRAN% 0.5 % (0.0-0.5); LYMPH% 7.9 % (20.5-51.1); MANUAL DIFF NEEDED? YES; MCH 30.2 PG (27-31); MCHC 33.9 g/dL (33-37); MCV 88.9 FL (81-99); MONO# 0.46 X1000 (0.11-0.59); MONO% 3.7 % (1.7-9.3); MPV 9.5 FL (7.4-10.4); NEUT% 87.8 % (42.2-75.2); PLT 363 X1000 (130-400); RBC 4.41 XMIL (4.2-5.4)
[2016-11-11 08:33] LABS: BANDS 2 % (0-1); LYMPHS 14 % (21-51); MONO 4 % (1-9)
--- NOTE | 2016-11-11 10:19 | OPERATIVE NOTE ---
PROCEDURE DATE: 11/09/2016 REFERRING PHYSICIAN: Shady Allan M.D. INDICATION FOR PROCEDURE: 1. Nausea with vomiting. 2. Abdominal pain. 3. Abnormal CT scan with possible colitis versus mass in the transverse colon with proximal obstruction. PROCEDURE PERFORMED: Esophagogastroduodenoscopy with biopsy. CONSENT: Informed consent was obtained from the patient prior to the procedure. The risks, benefits, and alternatives were discussed with the patient, her , and her mother. PERFORMING PHYSICIAN: Josephine Gao M.D. ASSISTANTS: 1. [facility] 2. Virginia Rincon RN. 3. Elvia Saldivar CRNA. 4. Chinmay Boo M.D. (anesthesia). ESTIMATED BLOOD LOSS: 1 mL. SPECIMENS REMOVED: 1. Duodenal biopsy. 2. Gastric biopsy. 3. Esophageal biopsy. FINDINGS: After sedation was achieved, the upper endoscope was inserted to the third portion of the duodenum. The hypopharynx appeared normal. In the tubular esophagus, there was grade D erosive esophagitis involving more than 75% of the luminal surface beginning at 25 cm and extending to the GE junction at 35 cm. The proximal esophagus appeared grossly normal. The GE junction was again measured at 35 cm. There was a hiatal hernia from 35-40 cm. In the gastric lumen, there was more than 500 mL of retained gastric fluid consistent with gastric stasis. After evacuation, the lumen appeared dilated. There were erosive changes throughout the gastric lumen in the antrum, fundus, and body. The pylorus appeared grossly normal on forward view. The duodenal mucosa appeared normal to the third portion. However, the lumen was significantly dilated, suggestive of a possible distal obstruction. The lumen was decompressed as much as possible. The scope was then removed without incident. At the bedside, a nasogastric tube was placed while the patient was under sedation. IMPRESSION: 1. Grade D erosive esophagitis. 2. Hiatal hernia. 3. Gastric stasis. 4. Erosive gastritis. 5. Dilated lumen, consistent with a distal obstruction. 6. Successful nasogastric tube placement. RECOMMENDATION: 1. Await biopsy results. 2. Begin Carafate suspension through the nasogastric tube. 3. Begin Protonix 40 mg IV q.12 hours. 4. Monitor with KUB today to check tube placement and daily for the next few days to monitor what appears to be an ileus versus obstruction. 5. We will proceed with the flexible sigmoidoscopy/colonoscopy as previously scheduled. cc: MD Shady Burk MD MTDD
--- NOTE | 2016-11-11 10:29 | OPERATIVE NOTE ---
PROCEDURE DATE: 11/11/2016 REFERRING PHYSICIAN: Shady Allan M.D. INDICATIONS FOR THE PROCEDURE: 1. Abdominal CT with possible colitis versus mass in the transverse colon. 2. Abdominal pain. PROCEDURE PERFORMED: Flexible sigmoidoscopy with biopsy. CONSENT: Informed consent was obtained from the patient prior to the procedure. The risks, benefits, and alternatives were discussed with the patient, her , and her mother. We discussed the possibility of a flexible sigmoidoscopy versus colonoscopy based on the exam. The patient understood that she may require repeat colonoscopy if we were unsuccessful in reaching the area of concern on today's exam. PERFORMING PHYSICIAN: Josephine Gao M.D. ASSISTANTS: 1. [facility] 2. Virginia Rincon RN. 3. Elvia Saldivar CRNA. 4. Lance Boo M.D. (Anesthesia). COMPLICATIONS: There were no complications. ESTIMATED BLOOD LOSS: 1 mL. SPECIMENS REMOVED: Random colon biopsies. FINDINGS: After the esophagogastroduodenoscopy was performed, the patient was repositioned. The endoscope was inserted to approximately 40 cm. From the rectum to 40 cm, there were severe ulcerative changes with inflammatory exudate consistent with severe acute ulcerative colitis. There were intervening, grossly normal-appearing, areas between the ulcer suggestive of Crohn's disease. Due to bowel wall edema with luminal compromise, we were unable to advance the scope beyond 40 cm. Random colon biopsies were taken and the lumen was decompressed. The scope was removed without incident. Because of the inflammatory changes in the ulcerations, retroflex view was not performed. IMPRESSION: 1. Severe acute ulcerative colitis with lesions suggestive of possible Crohn's disease. 2. Distal obstruction beyond 40 cm which is worrisome for malignancy. RECOMMENDATIONS: 1. Begin IV Solu-Medrol 40 mg q.12 hours. 2. Monitor abdominal distention with KUB today and then daily for the next 2-3 days. Monitor for toxic myron colon versus worsening of her ileus/bowel obstruction. 3. We will check an IBD profile, as well as a CRP and CBC. 4. After 3-4 days of treatment, she will need a repeat colonoscopy in an effort to reach the questionable mass versus obstructed area in the transverse colon. 5. Additional recommendations to follow, based on her clinical course. 6. The findings were discussed with Dr. Shady Allan and Dr. Karthikeyan Cochran. cc: MD Shady Burk MD Jason R. Seale, MD MTDD
[2016-11-11] MEDS: DILAUDID IV PRN (11:06)
[2016-11-11] MEDS: PHENERGAN IV PRN (11:12)
--- NOTE | 2016-11-11 13:09 | PROGRESS NOTE ---
DATE: 11/11/2016 SUBJECTIVE: Ms. Casarez had a little more nausea this morning. She has passed gas on several occasions. Not had a bowel movement, though. She is more comfortable. She feels pretty weak. OBJECTIVE: Vital Signs: Temp 97.7 degrees, pulse 79, respirations 18, blood pressure 138/72. HEENT: Pupils are equal, round. Lungs: Clear in all lung naylor. Cardiovascular exam: Regular rhythm and rate without murmur or S3. Abdomen: Soft. Skin: Warm and dry. LABS: From this morning, white count 12,600, hematocrit of 39, platelet count 363,000. Review of labs from the : Electrolytes unremarkable. C-reactive protein was 15.38 yesterday and today is 7.09. ASSESSMENT AND PLAN: Nausea, suspect colitis and suspect she could have regional colitis. Esophagogastroduodenoscopy did show some suggestion of ulcers consistent with Crohn, but have been unable to do a colonoscopy. She did not tolerate the prep. She has a nasogastric tube in. She is feeling better. Nausea is much better. I am going to add Clinimix to her regimen. She is on empiric antibiotics taking methylprednisone 40 mg intravenous every 12 hours, Zosyn 3.375 intravenous every 6 hours, Carafate 1 g every 6 hours. So, will add Clinimix to her regimen. Swelling has gone down, her belly is not as swollen, and she is having less nausea. I think tentatively looking at Dr. Cochran exploring the colon with colonoscopy on Wednesday. cc: Shady Allan MD
--- NOTE | 2016-11-11 13:48 | PROGRESS NOTE ---
DATE: 11/11/2016 SUBJECTIVE: The patient says she is feeling a little better today. Less abdominal distention and pain. She has also passed gas several times. OBJECTIVE: Vital signs: She is afebrile. Vital signs are stable. General: She is alert and oriented x4. No acute distress. Gastrointestinal: Soft, nondistended. Minimally tender. No organomegaly. She has a few bowel sounds. LABORATORY: White cell count 12.6, hemoglobin 13, hematocrit 39, platelet count 363,000. C- reactive protein is 7.1. ASSESSMENT AND PLAN: A 46-year-old female with large bowel obstruction and distal colitis and. Biopsies are pending. She is on steroids and antibiotics. We are initiating Clinimix today and tentatively planning a repeat colonoscopy to evaluate the transition zone in her distal transverse colon. This is tentatively planned for 11/13/2016. cc: MD Shady Call MD
--- NOTE | 2016-11-11 14:36 | Diag Imaging Result Document ---
PROCEDURE NAME: TAMMY ABDOMEN - 11/11/2016 SUPINE RADIOGRAPH OF THE ABDOMEN AND PELVIS, 2 VIEWS: COMPARISON: 11/10/2016. FINDINGS: The NG tube is in stable position. There is approximately stable marked gaseous distention of the colon and multiple loops of small bowel. Obstruction versus ileus should be considered. There is no evidence of large-volume free abdominal gas. There is no definite organomegaly. IMPRESSION: Stable gaseous distention of multiple loops of bowel.
[2016-11-11] MEDS: CLINIMIX E 4.25%-5% SOLUTION 1,000 ML IV SCH (14:56)
[2016-11-11] MEDS: LEXAPRO PO SCH (20:05)
--- NOTE | 2016-11-11 21:55 | PROGRESS NOTE ---
DATE: 11/11/2016 SUBJECTIVE: The patient states that she is feeling better today. She had spontaneous flatus. She had nausea this morning, but this has subsequently resolved. She remains constipated with no spontaneous defecation. However, her abdominal bloating has improved considerably. OBJECTIVE: Vital signs: On exam, her blood pressure is 134/64, pulse 77, respiration 18, temperature of 97.9 degrees. HEENT: Unremarkable. She has a nasogastric tube in the right nares. There is minimal secretion from the right nares. Neck: Is supple, but she does have some tenderness with position changes due to the nasogastric tube. Pulmonary: Lungs are clear to auscultation with normal expiratory effort. Cardiovascular: Reveals regular rate and rhythm with no murmurs, gallops, or rubs. Abdominal: Reveals hypoactive bowel sounds. The abdomen is soft and slightly distended, but there is no rebound or guarding. Extremities: Bilaterally are negative for cyanosis, clubbing, or edema. OBJECTIVE DATA: Reveals a hemoglobin of 13.3 with hematocrit of 39.2, and white count of 12.60. She has 363,000 platelets. Her CRP is 7.9. Her KUB reveals stable gaseous distention. IMPRESSION: 1. Acute colitis. 2. Bowel obstruction. 3. Nausea. 4. Grade D erosive esophagitis. 5. Gastric stasis. 6. Erosive gastritis. RECOMMENDATION: 1. Continue Protonix. 2. Continue Carafate for 12 weeks. 3. Continue nasogastric tube decompression. 4. She will need a KUB for further evaluation of the colonic lesion. Dr. Karthikeyan Cochran plans to perform endoscopy on Wednesday. Because of the flow rate of the nasogastric tube, I would begin the MiraLAX at noon tomorrow. Those orders have been written. 5. I will place the order for Dr. Cochran to have the patient on the schedule for colonoscopy on Wednesday. I will defer to him with regard to the time. 6. I will be out of the office until November 17. Dr. Cochran will be performing the gastrointestinal procedures. Dr. Diamond and Dr. Bernard are available for Gastroenterology consultation in the event of acute change. I will be available by cell phone and by text. Please feel free to call if there are any additional questions. cc: JosephineMD Shady Campbell MD Jason R. Seale, MD
[2016-11-12] MEDS: CLINIMIX E 4.25%-5% SOLUTION 1,000 ML IV SCH ×2 (00:05→18:51)
[2016-11-12] MEDS: PROTONIX IV SCH ×2 (01:19→13:25)
[2016-11-12] MEDS: SOLU-MEDROL IV SCH ×2 (01:19→13:26)
[2016-11-12] MEDS: ZOFRAN IV PRN ×5 (02:58→21:57)
[2016-11-12] MEDS: CARAFATE LIQUID PO SCH ×4 (02:58→21:00)
[2016-11-12] MEDS: SODIUM CHLORIDE 0.9% INJ SCH ×2 (02:59→13:25)
[2016-11-12] MEDS: FLAGYL 500 MG/NS 500 MG/100 ML IVPB IV SCH ×3 (04:04→21:00)
[2016-11-12] MEDS: ZOSYN 3.375 GM/NS 3.375 GM/50 ML IVPB IV SCH ×5 (05:51→21:59)
--- NOTE | 2016-11-12 08:05 | PROGRESS NOTE ---
DATE: 11/12/2016 SUBJECTIVE: Ms. Casarez had a pretty good night. She had a little nausea again this morning. Abdomen, she feels may be tensing up some. She is passing some gas, but more overall, she states she is much more comfortable. PHYSICAL EXAMINATION: Vital Signs: Temperature 98.3, pulse 88, respirations 18, blood pressure 139/70. HEENT: Pupils are equal, round. Lungs: Clear in all lung naylor. Cardiovascular: Regular rhythm and rate without murmur or S3. : Urine output 1200 mL. LABS: Reviewed lab from yesterday. Electrolytes and CBC unremarkable. ASSESSMENT AND PLAN: Acute colitis. Will continue Protonix, Carafate, nasogastric tube decompression. Dr. Cochran following. Follow KUB. Will try and prep through the nasogastric tube with some Colyte in anticipation for a re-try of colonoscopy tomorrow. Nausea seems to be a little better. She does have gastritis and gastric stasis, and grade D erosive esophagitis. I do not see any change in the orders at this point. She is on Zosyn and she is on Flagyl. She is getting Clinimix at this time. cc: Shady Allan MD
[2016-11-12] MEDS ORDERED: GOLYTELY PO ONE (12:00)
--- NOTE | 2016-11-12 12:25 | PROGRESS NOTE ---
DATE: 11/12/2016 SUBJECTIVE: The patient's main complaints are just overall anxiety. She feels a little bloated but continues to pass some gas through the night. No more vomiting. OBJECTIVE: Vital signs: She is afebrile. Vital signs are stable. General: She is alert and oriented x4. No acute distress. GI: Soft. Slightly distended and tympanic. Minimally tender. Hypoactive bowel sounds. ASSESSMENT AND PLAN: This is a 46-year-old female with colonic obstruction. There is evidence of distal colitis. The plans are for a bowel prep today and repeat a colonoscopy attempt tomorrow to evaluate a distal transverse colon abnormality and try to rule out malignancy. I have discussed this with her. We went over the risks and benefits of colonoscopy including bleeding and perforation and other imponderables. She understands and agrees to proceed. cc: MD Shady Call MD
[2016-11-12] MEDS: LEXAPRO PO SCH (21:59)
[2016-11-13] MEDS: DILAUDID IV PRN (00:11)
[2016-11-13] MEDS: PROTONIX IV SCH ×2 (00:20→21:07)
[2016-11-13] MEDS: SOLU-MEDROL IV SCH ×2 (00:20→21:07)
[2016-11-13] MEDS: SODIUM CHLORIDE 0.9% INJ SCH ×2 (00:21→21:07)
[2016-11-13] MEDS: FLAGYL 500 MG/NS 500 MG/100 ML IVPB IV SCH ×3 (03:45→21:04)
[2016-11-13] MEDS: CARAFATE LIQUID PO SCH ×4 (03:46→21:08)
[2016-11-13] MEDS: ZOSYN 3.375 GM/NS 3.375 GM/50 ML IVPB IV SCH ×3 (04:59→21:06)
[2016-11-13] MEDS: CLINIMIX E 4.25%-5% SOLUTION 1,000 ML IV SCH ×4 (04:59→20:36)
--- NOTE | 2016-11-13 09:51 | PROGRESS NOTE ---
DATE: 11/13/2016 SUBJECTIVE: The patient had a rough night. Did fairly well and then had quite a bit of projectile nausea about 10:30 last night, so we stopped the Colyte and put her NG tube back to suction. She is passing flatus and feeling like she is having abdominal cramping. So I think the plan is to still try and proceed with investigative colonoscopy this morning. OBJECTIVE: Vital Signs: Temp 98.0 degrees, pulse 119, respirations 20, blood pressure 142/75. Eyes: Pupils are equal and round. Lungs: Clear in all lung naylor. Cardiovascular exam: Regular rhythm and rate without murmur or S3. Abdomen: Soft. Skin: Warm and dry. : Urine output 1300 mL. LAB: White count 12,600, hematocrit 39, platelet count 263,000. Sodium 141, potassium 3.5, chloride 104, bicarbonate 25, BUN 5 and creatinine 0.6. C-reactive protein was 15 and came down to 7. This is review of lab from the - and -. ASSESSMENT AND PLAN: Colon obstruction. Evidence of distal colitis. Hope to do colonoscopy. Investigate today. The upper revealed gastritis, esophagitis and suggestion of regional enteritis. Did get down some Colyte, but it had been difficult to tolerate the prep. cc: Shady Allan MD
[2016-11-13] MEDS ORDERED: FENTANYL ONE ×2 (10:10→17:13)
[2016-11-13] MEDS ORDERED: DIPRIVAN 1% 500 MG/50 ML BOTTLE ONE (10:10)
[2016-11-13] MEDS ORDERED: PEPCID ONE (10:39)
--- NOTE | 2016-11-13 14:22 | OPERATIVE NOTE ---
PROCEDURE DATE: 11/13/2016 PREOP DIAGNOSIS: Large bowel obstruction. POSTOPERATIVE DIAGNOSIS: Colon cancer. PROCEDURE: Diagnostic colonoscopy. SURGEON: Karthikeyan Cochran MD. ANESTHESIA: General. TURBINE MEASUREMENTS ENGINEER: Morena Diamond. ESTIMATED BLOOD LOSS: Scant. COMPLICATIONS: None. APPARENT FINDINGS: She had a large, near circumferential, near complete obstructing mass at the distal transverse colon near the splenic flexure at about 60 cm from the anus. There was some mild disuse colitis distally in the sigmoid and rectum. TECHNIQUE: She was brought to the endoscopy room. General endotracheal anesthesia was induced. She was placed on her left side. A digital rectal exam was performed. There was good tone. No distal rectal masses were appreciated. The colonoscope was then advanced with some difficulty through a tortuous sigmoid colon. There was some mild edema and evidence of disuse colitis. I then was able to navigate up to the splenic flexure. Just past the splenic flexure at about 60 cm from the anus an obstructing malignant appearing mass was found. Despite multiple attempts I could not navigate past this mass due to it's size and apparent extreme narrowing of the lumen. I irrigated and suctioned out the irrigant and still could not get past it. I asked for Dr. Diamond to come in as a consultation for confirmation of the findings and for him to attempt moving beyond the mass and he also attempted and could not move beyond the mass. We then desufflated the remaining colon and withdrew the colonoscope. Partial colectomy is planned and I went out to talk to her family. cc: MD Shady Call MD [facility]
[2016-11-13] MEDS ORDERED: QUELICIN (DOSE) ONE (14:45)
[2016-11-13] MEDS ORDERED: EXTENSION SET 32 IN 4522 ONE (14:45)
[2016-11-13] MEDS ORDERED: XYLOCAINE-MPF 2% ONE (14:45)
[2016-11-13] MEDS ORDERED: ANESTHESIA PB SET 88 IN 5742 ONE (14:45)
[2016-11-13] MEDS ORDERED: REGLAN ONE (14:45)
[2016-11-13 15:44] LABS: BILIRUBIN URINE NEGATIVE (NEGATIVE); BLOOD URINE NEGATIVE (NEGATIVE); COLOR YELLOW; GLUCOSE URINE NEGATIVE (NEGATIVE); LEUKOCYTES URINE NEGATIVE (NEGATIVE); NITRITE URINE NEGATIVE (NEGATIVE); PROTEIN URINE NEGATIVE (NEGATIVE); SP GRAVITY URINE 1.009; TURBIDITY URINE CLEAR (CLEAR); URINE MICRO REVIEW NEEDED? NO; URINE SOURCE CATH; UROBILINOGEN URINE NORMAL (NORMAL)
[2016-11-13 15:46] LABS: UR EPITHELIAL CELLS <10 /HPF (<10); URINE BACTERIA NEGATIVE /HPF; URINE RBC <10 /HPF (<10); URINE WBC <10 /HPF (<10)
[2016-11-13] MEDS: MORPHINE ONE ×2 (17:06→17:11)
[2016-11-13] MEDS ORDERED: DIPRIVAN 1% ONE (17:14)
[2016-11-13] MEDS ORDERED: VERSED ONE (17:14)
[2016-11-13] MEDS ORDERED: PHENERGAN ONE (17:20)
[2016-11-13] MEDS ORDERED: MORPHINE ONE (17:24)
[2016-11-13] MEDS: DILAUDID ONE ×4 (17:34→18:02)
[2016-11-13] MEDS ORDERED: LR 500 ML ONE (17:39)
[2016-11-13] MEDS ORDERED: DILAUDID PCA VIAL ONE (17:41)
[2016-11-13] MEDS ORDERED: ZOFRAN IV PRN (18:23)
[2016-11-13] MEDS ORDERED: NARCAN IV PRN (18:23)
--- NOTE | 2016-11-13 18:47 | OPERATIVE NOTE ---
PROCEDURE DATE: 11/13/2016 PREOP DIAGNOSES: 1. Large bowel obstruction. 2. Colon mass. POSTOP DIAGNOSES: 1. Large bowel obstruction. 2. Colon mass. 3. Meckel's diverticulum. PROCEDURES: 1. Exploratory laparotomy with partial colectomy and primary anastomosis. 2. Meckel's diverticulectomy. SURGEON: Karthiekyan Cochran. PRECISION ASSEMBLY INSPECTOR: Abebe Goodson. ANESTHESIA: General. ESTIMATED BLOOD LOSS: 50 mL. COMPLICATIONS: None apparent. SPECIMENS: 1. Portion of transverse colon. 2. Meckel's diverticulum. FINDINGS: She had a malignant obstructing mass in her mid transverse colon. The proximal transverse and ascending colon were dilated with air but appeared to be viable. There was no evidence of peritoneal metastases or hepatic metastases. She did have a few enlarged lymph nodes in the mesentery below the mass. She had a Meckel's diverticulum. TECHNIQUE: She was brought to the operating room and placed supine on the table. A Alberts catheter was already in place as well as an NG tube. She was prepped and draped in usual sterile fashion after general anesthesia was induced. An upper midline incision was made from the xiphoid to the umbilicus and carried down through the subcutaneous fat with the knife and cautery. The fascia was incised with cautery. The peritoneum was grasped between hemostats and incised sharply with scissors. The peritoneum and fascia was then opened completely throughout the length of the incision with cautery protecting the underlying bowel. There was some benign appearing ascites. I inspected and palpated both of the liver lobes and they appeared normal. The omentum was somewhat shrunken but did not appear to have any obvious metastatic disease. None of the other peritoneal surfaces on the small bowel or abdominal wall appeared to be effected by any metastatic implants. We immediately found the malignant mass in her mid transverse colon. It was essentially right under the fascia in her upper midline. I selected an area proximally and distally at least 6 cm on either side where the bowel appeared normal and placed bowel clamps. The colon was divided between the clamps proximally and distally with a knife and then the mesentery including an envelope of al tissue was divided with the LigaSure device. This did include I believe a portion of the middle colic artery and vein. Also I did place a wound protector prior to this resection and toweled and packed off the rest of the bowel out of the way. I then brought the 2 ends together in an end-to-end fashion. There was a significant discrepancy in the size of the lumen due to the obstruction. The proximal limb was quite dilated compared to the distal limb. Therefore I removed the clamp off of the distal limb and made an incision along the antimesenteric side of the bowel with cautery long enough to approximate the length of our proximal limb. I then brought these 2 together in an end-to-end fashion. A posterior row of 3- 0 silk seromuscular sutures was placed in an interrupted fashion. The proximal clamp was removed. The air was decompressed out of the colon. There was essentially no spillage of gross stool. The inner layer posteriorly was begun with a running locking 3-0 Vicryl converting to a baseball stitch anteriorly and then the outer anterior layer was completed with another layer of interrupted 3-0 silk seromuscular sutures. There was no tension on the anastomosis, it had good color and appeared to have good blood flow in the mesentery. The mesenteric defect was closed with a running 3-0 silk. I then inspected the proximal colon, small bowel and the terminal ileum and found a Meckel's diverticulum. It was about 2 inches in length and an inch in width. It was somewhat dilated and thickened as was the rest of the small bowel. I could not feel a mass and there was no obvious diverticulitis. However there was a Meckel's band of fatty adhesions overlying the small bowel narrowing the lumen of the small bowel somewhat. I decided to go ahead and incise this band of tissue as it appeared to be causing a mild partial obstruction of the small bowel and then performed a diverticulectomy with a blue NADIR stapler across the base of the diverticulum. I did not feel like this compromised the lumen of the small bowel in any way. The proximal colon was without any synchronous masses. I then replaced the small bowel and colon back into the abdominal cavity in its anatomic position. The peritoneum was then closed with a running #1 Vicryl. The fascia was closed with a running #1 looped Maxon suture. The skin was closed with skin clips. I should also point out that Dr. Goodson was present throughout the case and very helpful in exposing the mass and mesentery as well as retraction during the resection and also in assisting with the hand-sewn anastomosis and closing the fascia, so he was quite helpful throughout the case. There were no apparent complications. She was awakened in stable condition and transferred to the recovery room. cc: MD Shady Call MD MTDD
[2016-11-13] MEDS: OFIRMEV 1000 MG/ISOTONIC SOLN 1,000 MG/100 ML BOTTLE IV SCH (20:55)
[2016-11-13 21:36] LABS: BASO% 0.2 % (0.0-0.8); EOS# 0.02 X1000 (0.0-0.7); EOS% 0.1 % (0.0-10.0); HEMATOCRIT 39.8 % (37.0-47.0); HEMOGLOBIN 13.5 g/dL (12.0-16.0); IMM GRAN% 0.4 % (0.0-0.5); LYMPH# 0.71 X1000 (1.2-3.4); LYMPH% 2.9 % (20.5-51.1); MANUAL DIFF NEEDED? NO; MCH 30.5 PG (27-31); MCHC 33.9 g/dL (33-37); MCV 89.8 FL (81-99); MONO# 1.25 X1000 (0.11-0.59); MONO% 5.1 % (1.7-9.3); MPV 9.7 FL (7.4-10.4); NEUT% 91.3 % (42.2-75.2); PLT 306 X1000 (130-400); RBC 4.43 XMIL (4.2-5.4)
[2016-11-14] MEDS: PERIDEX MT SCH ×3 (03:47→20:00)
[2016-11-14] MEDS: ZOSYN 3.375 GM/NS 3.375 GM/50 ML IVPB IV SCH ×4 (03:47→20:00)
[2016-11-14] MEDS: LEXAPRO PO SCH ×2 (03:47→23:15)
[2016-11-14] MEDS: CARAFATE LIQUID PO SCH ×4 (03:48→23:15)
[2016-11-14] MEDS: CLINIMIX E 4.25%-5% SOLUTION 1,000 ML IV SCH ×2 (03:48→14:49)
[2016-11-14] MEDS: OFIRMEV 1000 MG/ISOTONIC SOLN 1,000 MG/100 ML BOTTLE IV SCH ×4 (04:02→19:49)
[2016-11-14] MEDS: FLAGYL 500 MG/NS 500 MG/100 ML IVPB IV SCH ×3 (04:50→20:00)
--- NOTE | 2016-11-14 07:18 | PROGRESS NOTE ---
DATE: 11/14/2016 SUBJECTIVE: Patient doing okay. Reports some abdominal pain, but nothing significant. PHYSICAL EXAMINATION: Vital Signs: Patient is currently afebrile. Her heart rate has been in the 120s, but is currently in the 1 teens. Blood pressure is stable. Urine output has been good. General exam: No acute distress. Cardiovascular: Mildly tachycardic. Lungs: Grossly clear. Abdomen: Soft, appropriately tender. Dressing in place. : Alberts catheter in place with clear urine. LABORATORY: None. ASSESSMENT AND PLAN: A 46-year-old, female, status post exploratory laparotomy with colon resection and Meckel's diverticulectomy. Postoperative state: At this time, patient does have a little mild tachycardia. Will keep her Alberts catheter and monitor volume status. She is getting a significant amount of fluid and will monitor her closely. She is on Clinimix and will continue that for right now. We will await return of bowel function. Once she has return of bowel function, we will plan on starting p.o. intake. cc: MD Shady Landis MD
[2016-11-14] MEDS: PROTONIX IV SCH ×2 (08:05→19:59)
[2016-11-14] MEDS: LOVENOX SUBQ SCH (08:05)
[2016-11-14] MEDS: SOLU-MEDROL IV SCH ×2 (08:05→19:59)
--- NOTE | 2016-11-14 09:59 | PROGRESS NOTE ---
DATE: 11/14/2016 SUBJECTIVE: Ms. Casarez is feeling better this morning. She is very sleepy. No nausea and minimal pain at this point. Surgery yesterday, looking at the report they found a Gely diverticulum. I think biopsy from colonoscopy revealed some possible adenocarcinoma. There were a couple of suspicious lymph nodes apparently. They did an end-to-end anastomosis. She has remained afebrile. NG tube still in place. OBJECTIVE: Vital Signs: Temperature 98.6 degrees, pulse 113, respirations 20, blood pressure 123/77. HEENT: Pupils are equal, round. Lungs: Clear. Cardiovascular: Regular rhythm and rate without murmur or S3. Abdomen: Soft. Skin is warm and dry. Urine Output: 6 liters. LABORATORY DATA: White count from yesterday 24,660, we will recheck tomorrow; hematocrit 39, platelet count 306,000. Chemistries looked good. Sodium 141, potassium 3.5, chloride 104, BUN 5, creatinine 0.6. ASSESSMENT AND PLAN: Bowel obstruction, status post exploratory laparotomy, colon resection with Gely diverticulotomy, apparently needle biopsy from colonoscopy suggestive of adenocarcinoma. I think the lymph nodes and resection and pathology pending. She is doing much better. She is on Zosyn 3.375 mg every 6 hours, Protonix 40 mg every 24 hours, Methylprednisone 40 mg every 12 hours. She is on her Clinimix, getting the Carafate 1 gram every 6 hours still. I think we will taper the prednisone as we can. She is also on metronidazole 500 mg intravenously every 8 hours. cc: Shady Allan MD
--- NOTE | 2016-11-14 13:51 | CONSULTATION ---
DATE OF CONSULTATION: 11/14/2016 REQUESTING PHYSICIAN: Dr. Josephine Gao. REASON FOR CONSULTATION: Colon mass. HISTORY OF PRESENT ILLNESS: Ms. Casarez is a 46-year-old, female, who initially presented to the emergency department approximately 3 weeks ago complaining of diffuse abdominal pain. She was discharged and then saw her family physician who prescribed her some Bentyl for possible irritable bowel syndrome. She then returned to the emergency room complaining of increased abdominal pain with more nausea and vomiting. She had a CT scan while in the emergency department which was suspicious for colon lesion and/or colitis, and she was hospitalized for further evaluation and treatment. The patient then spent the remainder of the week after her admission trying to get prepared for a colonoscopy. She finally had the colonoscopy and then, finally yesterday, underwent partial colectomy as well as Kilkenny diverticulotomy. The patient is now currently recovering from surgery. Pathology is currently pending. PAST MEDICAL HISTORY: Panic attacks. PAST SURGICAL HISTORY: Hysterectomy. SOCIAL HISTORY: The patient does not use tobacco products and drinks socially. She denies any illicit drug use. The patient is a teacher and is . FAMILY HISTORY: Positive for coronary artery disease. REVIEW OF SYSTEMS: As per the HPI. All else negative and noncontributory. PHYSICAL EXAMINATION: Vital Signs: Temperature 98.6 degrees, heart rate 113, respirations 20, blood pressure 123/77, O2 saturations 99% on room air. General: This is a female lying in a hospital bed. She is in mild discomfort secondary to surgical pain. Overall, pain is well controlled. She does have an NG tube in place. Her is at bedside. HEENT: Head appears to be normocephalic, atraumatic. Eyes: Pupils equal, round, and reactive. Ears, nose, throat, neck, and mouth. Oral mucosa appears to be of normal color. She does have dry oral mucosa. Trachea is midline. Cardiovascular: S1-S2 heard. No murmurs, gallops, rubs appreciated. Respiratory: Chest is clear to auscultation bilaterally. Normal respiratory effort. Gastrointestinal: Abdomen is soft. She has diffuse tenderness secondary to her surgery. It is nondistended. Musculoskeletal: No bony abnormalities noted. Extremities: The patient has no swelling or edema. Neurologic: The patient is alert and oriented x3 with no focal motor deficits. LABORATORY DATA AND STUDIES: White blood cells 24.6, hemoglobin 13.5, hematocrit 39.8. Glucose 306. Sodium 141, potassium 3.5, chloride 104, CO2 of 25. BUN 5, creatinine 0.6, glucose is 90. CT of abdomen and pelvis shows a nonspecific 1 cm low-density lesion in the posterior right lobe of the liver. An elevated 1.7 cm thick-walled right ovarian cyst. She also had wall thickening at the distal transverse colon. ASSESSMENT AND PLAN: 1. Colon mass. She is status post resection yesterday. Final path is currently pending. We will go ahead and check CEA and LDH. She does have right Kilkenny's diverticulum. Depending on path results, consider completing staging with the chest CT if needed. The patient will also follow up as an outpatient once she has recovered from surgery and the path is finalized to initiate any treatment as needed. 2. Colitis. Continue as per Dr. Gao, insurance marketing rep. 3. Postsurgical pain. Currently, well controlled. Management per Dr. Sánchez. I want to thank you for consulting us on Ms. Casarez. We will continue to follow along with you and adjust our treatment plan per her hospital course. Dictated by LC Johnson for Kimo Rawls MD cc: MD Shady Jim MD
[2016-11-14] MEDS: LR 1,000 ML IV SCH (14:51)
[2016-11-14] MEDS: DILAUDID PCA VIAL IV PRN (18:48)
[2016-11-14] MEDS: BENADRYL IV PRN (23:46)
[2016-11-15] MEDS: OFIRMEV 1000 MG/ISOTONIC SOLN 1,000 MG/100 ML BOTTLE IV SCH ×4 (03:13→22:01)
[2016-11-15] MEDS: CLINIMIX E 4.25%-5% SOLUTION 1,000 ML IV SCH ×3 (03:14→16:05)
[2016-11-15] MEDS: ZOSYN 3.375 GM/NS 3.375 GM/50 ML IVPB IV SCH ×4 (03:16→21:59)
[2016-11-15] MEDS: FLAGYL 500 MG/NS 500 MG/100 ML IVPB IV SCH ×3 (03:17→22:01)
[2016-11-15] MEDS: CARAFATE LIQUID PO SCH ×4 (03:20→21:58)
[2016-11-15] MEDS: LR 1,000 ML IV SCH ×2 (03:20→16:05)
--- NOTE | 2016-11-15 07:02 | PROGRESS NOTE ---
DATE: 11/15/2016 SUBJECTIVE: Patient doing well. Reports passing some flatus on multiple occasions. OBJECTIVE: Vital Signs: Patient is afebrile. Her vital signs are stable. General Examination: No acute distress. Cardiovascular: Regular rate and rhythm. Lungs: Grossly clear. Abdomen: Soft, appropriately tender. Incision is healing well. Dressing removed. Laboratory: Reviewed. ASSESSMENT AND PLAN: A 46-year-old female, status post exploratory laparotomy with colon resection of Meckel's diverticulectomy, currently postoperative day #2. Postoperative day #2. At this time, the patient is doing well. We will clamp her nasogastric tube and start her on clear liquids. She has had some return of bowel function. If she has nausea, we will reclamp it. We will remove Alberts catheter and monitor her closely. She is on Clinimix. We will continue that for now until she has significant return of bowel function. cc: MD Shady Landis MD
[2016-11-15] MEDS: LOVENOX SUBQ SCH (09:11)
[2016-11-15] MEDS: SOLU-MEDROL IV SCH ×2 (09:11→22:01)
[2016-11-15] MEDS: PROTONIX IV SCH ×2 (09:11→22:01)
[2016-11-15] MEDS: PERIDEX MT SCH ×2 (09:12→22:01)
[2016-11-15] MEDS: DILAUDID PCA VIAL IV PRN (18:19)
[2016-11-15] MEDS: LEXAPRO PO SCH (21:58)
[2016-11-15] MEDS: SODIUM CHLORIDE 0.9% INJ SCH (22:01)
[2016-11-15] MEDS: BENADRYL IV PRN (22:32)
[2016-11-16] MEDS: CARAFATE LIQUID PO SCH ×4 (02:47→20:50)
[2016-11-16] MEDS: OFIRMEV 1000 MG/ISOTONIC SOLN 1,000 MG/100 ML BOTTLE IV SCH ×4 (02:48→20:47)
[2016-11-16] MEDS: ZOSYN 3.375 GM/NS 3.375 GM/50 ML IVPB IV SCH ×4 (02:48→20:49)
[2016-11-16] MEDS: FLAGYL 500 MG/NS 500 MG/100 ML IVPB IV SCH ×3 (04:30→20:03)
--- NOTE | 2016-11-16 06:01 | PROGRESS NOTE ---
DATE: 11/16/2016 SUBJECTIVE: The patient is doing well. Continues to pass flatus. Tolerated her NG tube being clamped and tolerating clear liquid diet. OBJECTIVE: Vital Signs: Patient is currently afebrile. Her vital signs are stable. General Examination: No acute distress. Cardiovascular: Regular rate and rhythm. Lungs: Grossly clear. Abdomen: Soft, nondistended. Appropriately tender. Incision is healing well. ASSESSMENT/PLAN: A 46-year-old female, status post exploratory laparotomy with colon resection and resection of Meckel's diverticulum, currently postoperative day #3. 1. Postoperative day #3. At this time, the patient is doing well. We will remove her NG tube and start her on full liquid diet. Wait return of bowel function before advancing her to a regular diet. Continue current treatment. Overall, she is doing well. cc: MD Shady Landis MD
[2016-11-16] MEDS: CLINIMIX E 4.25%-5% SOLUTION 1,000 ML IV SCH ×2 (08:13→20:45)
[2016-11-16] MEDS: PROTONIX IV SCH ×2 (08:21→20:51)
[2016-11-16] MEDS: SODIUM CHLORIDE 0.9% INJ SCH ×2 (08:21→20:51)
[2016-11-16] MEDS: SOLU-MEDROL IV SCH ×2 (08:23→20:51)
[2016-11-16] MEDS: LOVENOX SUBQ SCH (08:26)
[2016-11-16] MEDS: PERIDEX MT SCH ×2 (08:26→20:50)
[2016-11-16] MEDS ORDERED: DECADRON ONE (09:19)
[2016-11-16] MEDS ORDERED: NEOSTIGMINE ONE (09:19)
[2016-11-16] MEDS ORDERED: ZOFRAN ONE (09:19)
[2016-11-16] MEDS ORDERED: LR 2,000 ML ONE (09:19)
[2016-11-16] MEDS ORDERED: ROBINUL ONE (09:19)
[2016-11-16] MEDS ORDERED: NORCURON ONE (09:19)
[2016-11-16] MEDS ORDERED: QUELICIN (DOSE) ONE (09:19)
[2016-11-16] MEDS ORDERED: OFIRMEV 1000 MG/ISOTONIC SOLN 1,000 MG/100 ML BOTTLE ONE (09:19)
[2016-11-16] MEDS ORDERED: CLAVE SECONDARY SET 11953 ONE (09:19)
[2016-11-16] MEDS ORDERED: XYLOCAINE-MPF 2% ONE (09:19)
--- NOTE | 2016-11-16 09:55 | PROGRESS NOTE ---
DATE: 11/15/2016 SUBJECTIVE: Ms. Casarez is feeling better. NG tube is still in place. No nausea. She feels like she is passing some gas but much more comfortable. Her throat is a little irritated, I think from the NG tube. PHYSICAL EXAMINATION: Vital Signs: Temperature 98.2 degrees, pulse 80, respirations 19, blood pressure 132/74. HEENT: The pupils are equal and round. Lungs: Clear in all lung naylor. Cardiovascular Examination: Regular rhythm and rate without murmur or S3. Abdomen: Soft. Is and Os: Urine output is over 2 L. DIAGNOSTIC DATA: White count on the was 24,660, hematocrit 39, platelet count 306,000. Chemistries: Reviewed before. I think we will check some more on Wednesday morning. ASSESSMENT/PLAN: Status post colon resection, exploratory laparotomy, resection of Meckel's diverticulum. Postoperative day 2 at this point. The patient is doing very well. Probably remove nasogastric tube tomorrow and advance. cc: Shady Allan MD
--- NOTE | 2016-11-16 10:09 | PROGRESS NOTE ---
DATE: 11/16/2016 SUBJECTIVE: She has had a very good morning. NG tube is out. She has had some stool several times this morning. No nausea. Feeling much better. Throat no longer sore. PHYSICAL EXAMINATION: Vital Signs: Temperature 98.2 degrees, pulse of 80, respirations 19, blood pressure 132/74. Lungs: Clear in all lung naylor. Cardiovascular Examination: Regular rhythm and rate without murmur or S3. Abdomen: Soft. Skin: Warm and dry. Is and Os: Urine output is over 2 L. LABORATORY DATA: Lab reviewed. We will check some more in the morning. ASSESSMENT AND PLAN: Reviewed her orders. She is on Zosyn right now. I think we probably can stop that. She is on Protonix 40 mg intravenous every 12 hours, methylprednisone 40 mg intravenous every 12 hours and I may reduce that as well to 20 mg. Keep her on the Flagyl. cc: Sahdy Allan MD
[2016-11-16] MEDS: LR 1,000 ML IV SCH ×2 (15:43→16:59)
[2016-11-16] MEDS: DILAUDID PCA VIAL IV PRN (19:07)
[2016-11-16] MEDS: LEXAPRO PO SCH (20:51)
[2016-11-17] MEDS: OFIRMEV 1000 MG/ISOTONIC SOLN 1,000 MG/100 ML BOTTLE IV SCH ×4 (03:00→21:58)
[2016-11-17] MEDS: ZOSYN 3.375 GM/NS 3.375 GM/50 ML IVPB IV SCH ×4 (03:03→22:00)
[2016-11-17] MEDS: FLAGYL 500 MG/NS 500 MG/100 ML IVPB IV SCH ×3 (03:03→21:41)
[2016-11-17] MEDS: CARAFATE LIQUID PO SCH ×4 (03:04→21:57)
[2016-11-17] MEDS ORDERED: NORCO-10 PO PRN (06:28)
--- NOTE | 2016-11-17 06:45 | PROGRESS NOTE ---
DATE: 11/17/2016 SUBJECTIVE: Patient doing well. Had multiple bowel movements. Tolerating her p.o. intake. OBJECTIVE: Vital Sign: Patient is currently afebrile. Her vital signs are stable. General: No acute distress. Cardiovascular: Regular rate and rhythm. Lungs: Grossly clear. Abdomen: Soft, nondistended. Appropriately tender. Incision is healing well. ASSESSMENT AND PLAN: A 46-year-old female, status post exploratory laparotomy with colon resection and resection of Meckel's diverticulum. Currently postoperative day #4. Postoperative day #4: At this time, patient is doing well. We will start her on a regular diet. We will stop her IV fluids, her Clinimix, her patient-controlled analgesia. We will transition her over to p.o. pain medicine. At this time, her pathology is pending but I suspect she could be discharged here in the next couple of days. At this time, I have no real hard evidence to continue her on her antibiotics but will defer to the other teams as far as antibiotic duration goes. cc: MD Shady Landis MD
[2016-11-17] MEDS: SOLU-MEDROL IV SCH ×2 (08:18→22:04)
[2016-11-17] MEDS: PROTONIX IV SCH ×2 (08:18→22:04)
[2016-11-17] MEDS: PERIDEX MT SCH ×2 (08:18→21:57)
[2016-11-17] MEDS: LOVENOX SUBQ SCH (08:21)
[2016-11-17] MEDS: SODIUM CHLORIDE 0.9% INJ SCH ×2 (08:21→22:04)
--- NOTE | 2016-11-17 17:17 | PROGRESS NOTE ---
DATE: 11/17/2016 SUBJECTIVE: Ms. Casarez is feeling much better. She is stooling, bowels are moving. She is on a regular diet. No nausea. Is feeling stronger. Had a good night's sleep last night. OBJECTIVE: Vital signs: Temperature 98.2 degrees, pulse 78, respirations 20, blood pressure 144/71. HEENT: Pupils are equal, round. Lungs: Clear in all lung naylor. Cardiovascular: Regular rhythm and rate without murmur or S3. Abdomen: Soft. Skin: Warm and dry. : Urine output was over 4 L. LABORATORY DATA: No new labs recently. ASSESSMENT AND PLAN: Status post exploratory laparotomy, colon resection, resection of Gely diverticulum, also resection of a mass to mid transcending colon. Await pathology. She is on Clinimix. We stopped her IV fluids and Clinimix and she was on a regular diet at present time. Doing well. Nausea controlled. REVIEW OF HER ORDERS: Still on Zosyn 3.375 mg IV q.6 hours, Carafate 1 g q.6 hours, methylprednisone 40 mg IV q.12 hours, Flagyl 500 mg IV q.8. She is on Lexapro 10 mg at bedtime, Lovenox 40 mg subcutaneously q.24 hours, Carafate 1 g q.6 hours. cc: Shady Allan MD
[2016-11-17] MEDS: LEXAPRO PO SCH (21:57)
[2016-11-18] MEDS: OFIRMEV 1000 MG/ISOTONIC SOLN 1,000 MG/100 ML BOTTLE IV SCH ×3 (02:33→13:18)
[2016-11-18] MEDS: ZOSYN 3.375 GM/NS 3.375 GM/50 ML IVPB IV SCH ×3 (02:39→14:02)
[2016-11-18] MEDS: CARAFATE LIQUID PO SCH ×3 (02:41→13:18)
[2016-11-18] MEDS: FLAGYL 500 MG/NS 500 MG/100 ML IVPB IV SCH ×2 (03:21→12:02)
[2016-11-18] MEDS: PERIDEX MT SCH (08:19)
[2016-11-18] MEDS: SOLU-MEDROL IV SCH (08:19)
[2016-11-18] MEDS: LOVENOX SUBQ SCH (08:19)
[2016-11-18] MEDS: SODIUM CHLORIDE 0.9% INJ SCH (08:20)
[2016-11-18] MEDS: PROTONIX IV SCH (08:20)
[2016-11-18 09:36] LABS: MANUAL DIFF NEEDED? NO
[2016-11-18 10:03] LABS: EOS# 0.02 X1000 (0.0-0.7); EOS% 0.2 % (0.0-10.0); HEMOGLOBIN 11.1 g/dL (12.0-16.0); IMM GRAN# 0.04 X1000 (0.0-0.04); IMM GRAN% 0.4 % (0.0-0.5); LYMPH# 1.45 X1000 (1.2-3.4); LYMPH% 14.8 % (20.5-51.1); MCHC 33.6 g/dL (33-37); MCV 89.2 FL (81-99); MONO# 0.75 X1000 (0.11-0.59); MONO% 7.7 % (1.7-9.3); MPV 9.3 FL (7.4-10.4); NEUT% 76.9 % (42.2-75.2); PLT 371 X1000 (130-400)
[2016-11-18 10:05] LABS: AGAP 10; ALBUMIN 3.2 g/dL (3.5-5.0); ALKALINE PHOSPHATASE 53 U/L (32-104); BUN 9 mg/dL (8-22); CALCIUM 8.4 mg/dL (8.8-10.2); CHLORIDE 104 mmol/L (98-107); COSMO 277; GOT 20 U/L (10-30); GPT 30 U/L (10-36); POTASSIUM 3.4 mmol/L (3.5-5.1); PREALBUMIN 31.8 mg/dL (20-40); SODIUM 139 mmol/L (136-145); TCO2 25 mmol/L (25-35); TOTAL BILIRUBIN 0.39 mg/dL (0.20-1.00); TOTAL PROTEIN 5.7 g/dL (6.3-8.3)
[2016-11-18 17:22] VITALS: BP 132/69
--- NOTE | 2016-11-18 17:33 | PROGRESS NOTE ---
DATE: 11/18/2016 SUBJECTIVE: Patient doing well. Tolerating a regular diet, having bowel movements and pain controlled. OBJECTIVE: Vital Signs: Patient is currently afebrile. Her vital signs are stable. General: No acute distress. Resting comfortably. Cardiovascular: Regular rate and rhythm. Lungs: Grossly clear. Abdomen: Soft, appropriately tender. Incision is healing well. ASSESSMENT AND PLAN: A 46-year-old female, status post exploratory laparotomy with colon resection and resection of Meckel's diverticulum. Currently postoperative day #5. Postoperative day #5: At this time, patient doing well. She is tolerating a regular diet. I think she can be discharged home. We will put in discharge orders if okay with the patient's primary care physician. She needs to follow up with Dr. Cochran in 1 week for staple removal. cc: MD Shady Landis MD
--- NOTE | 2016-11-18 19:44 | PROGRESS NOTE ---
DATE: 11/18/2016 SUBJECTIVE: The patient is feeling much better. The team plans to discharge her to home today. She has met with Dr. Seo and has a treatment plan that has been outlined in detail with the family. From a GI perspective, I recommend the followin. After she completes her 6 months of chemotherapy, she will need a full colonoscopy as her initial exam was limited to the transverse colon. 2. We discussed diet and she was encouraged to increase her intake of protein, calcium, vitamin D, and antioxidants. 3. Begin probiotic once a day. 4. She was encouraged to pace herself in terms of her recovery and not to overdo. 5. We discussed indications to call our office, including abdominal pain, nausea , vomiting, fever or chills. She was given contact information in the event that she has any adverse outcomes. 6. 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 I will follow up with Dr. Ailyn Seo and her primary care, Shady Allan MD with regard to any additional recommendations regarding her care. cc: Emeli Burk M.D. Ailyn Seo M.D. IRVIN
--- NOTE | 2016-11-19 11:58 | DISCHARGE SUMMARY ---
ADMISSION DATE: 11/06/2016 DISCHARGE DATE: 11/18/2016 HISTORY AND HOSPITAL COURSE: Ms. Casarez presented with abdominal pain, bloating, and unable to have bowel movements. A CT scan suggested a mass in the transverse colon, questionable ileitis. EGD was done. Unable to do colonoscopy. Unable to tolerate the prep. Per Dr. Gao, the EGD suggested some aphthous ulcers. There was some question of Crohn's or inflammatory bowel disease. Prepped her for a couple more days as tolerated. Had to put an NG tube in because of intense nausea. Dr. Cochran was able to get a scope in and get a biopsy. Frozen suggested adenocarcinoma. 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 Pathology revealed adenoma. All the lymph nodes apparently positive by report. The patient was doing much better. Healing, tolerating food, and able to some bowel movements and comfortable. No nausea. [place] she could go home on 11/18/2016. DISCHARGE MEDICATIONS: She will be on Lexapro 10 mg a day, Hiko if she needs it for pain. Stop her antibiotics. She is on Zosyn and she is on Flagyl. cc: Shady Allan MD
== END 2016-11-18 19:25 | disposition home or self-care (01) ==
LOC: ED 13:58 → SUATTDRO 22:27 → 4N 22:27 → 3N 11-10 18:58
PROVIDERS: ADMIT Emergency Medicine; ATTEND Emergency Medicine